=== PATIENT | female | born 1960 | race Caucasian/White ===

== ENCOUNTER 2024-05-29 14:52 | Outpatient (CLI) | payer OTHER, SELFPAY ==
--- NOTE | 2024-05-29 15:20 | CRLHL7_ITS ---
For Patients: As a result of the Century Cures Act, medical imaging exams and procedure reports are released immediately into your electronic medical record. You may view this report before your referring provider. If you have questions, please contact your health care provider. BILATERAL SCREENING MAMMOGRAM WITH COMPUTER-AIDED DETECTION AND TOMOSYNTHESIS TECHNIQUE: CC and MLO views were obtained. These mammographic images have been obtained using full-field digital technique. These mammographic images were interpreted with the benefit of computer-aided detection. Breast Tomosynthesis was used in this interpretation. COMPARISON FILM: 11/01/22, 09/01/21, 02/10/18. FINDINGS: There are scattered areas of fibroglandular density. IMPRESSION: There is no radiographic evidence for malignancy. ASSESSMENT: BI-RADS Category 2: Benign RECOMMENDATION: Routine screening mammogram in 1 year. A lay language report of this examination will be provided to the patient. Brandon Ray M.D. Diagnostic/Nuclear Medicine Radiologist [email or web address] PAUL/luna SP/Dictated by: Brandon Ray MD @ 06/03/2024 10:14:00 AM (Electronically Signed)
== END 2024-05-29 14:53 | disposition home or self-care (01) ==
PROVIDERS: Visit Provider Radiology Diagnostic Radiology
DX: Z12.31 Encounter for screening mammogram for malignant neoplasm of breast (principal)
CPT/HCPCS: 77063; 77067

== ENCOUNTER 2024-06-15 15:45 | Outpatient (RCR) | payer OTHER, SELFPAY | END 2024-06-24 16:08 | disposition home or self-care (01) | PROVIDERS: Visit Provider Physician Assistant | DX: M25.551 Pain in right hip (principal); M62.81 Muscle weakness (generalized); Z74.09 Other reduced mobility; Z51.89 Encounter for other specified aftercare | CPT/HCPCS: 97110; 97140; 97161 ==

== ENCOUNTER 2025-06-08 16:24 | Outpatient (CLI) | payer OTHER, SELFPAY ==
--- NOTE | 2025-06-08 16:40 | CRLHL7_ITS ---
For Patients: As a result of the Century Cures Act, medical imaging exams and procedure reports are released immediately into your electronic medical record. You may view this report before your referring provider. If you have questions, please contact your health care provider. INDICATION: BILATERAL SCREENING MAMMOGRAM, ASYMPTOMATIC 65 Y/O FEMALE COMPARISON: 05/29/2024, 11/01/2022, 09/01/2021 TECHNIQUE: Digital mammogram in CC and MLO projections including computer-aided detection (CAD) and tomosynthesis. BREAST COMPOSITION: The breasts are heterogeneously dense, which may obscure small masses. FINDINGS: No suspicious findings. ASSESSMENT: BI-RADS 1 Negative RECOMMENDATION: Annual screening mammogram. A lay language report of this examination will be provided to the patient. Dictated by: Barak London MD @ 06/09/2025 09:15:10 (Electronically Signed)
== END 2025-06-08 16:25 | disposition home or self-care (01) ==
LOC: MAMMO 16:25
PROVIDERS: PCP Physician Assistant; Visit Provider Physician Assistant
DX: Z12.31 Encounter for screening mammogram for malignant neoplasm of breast (principal); R92.333 Mammographic heterogeneous density, bilateral breasts
CPT/HCPCS: 77063; 77067